=== PATIENT | female | born 1975 | race Caucasian/White ===

== ENCOUNTER → 2016-08-25 | Outpatient (CLI) | payer OTHER | LOC: KOH-I 08:18 | DX: K86.1 Other chronic pancreatitis (principal); R10.2 Pelvic and perineal pain; N94.10 Unspecified dyspareunia; K76.0 Fatty (change of) liver, not elsewhere classified; Z90.49 Acquired absence of other specified parts of digestive tract | CPT/HCPCS: 76705; 76856 ==